=== PATIENT | male | born 1965 | race Caucasian/White ===

== ENCOUNTER → 2017-11-01 | Outpatient (CLI) | payer BC ==
--- NOTE | 2017-11-01 10:27 | Diagnostic Imaging Report ---
PROCEDURE: US abdomen complete. TECHNIQUE: Multiple real-time grayscale images were obtained over the abdomen in various projections. INDICATION: Epigastric pain. FINDINGS: The liver is normal in size at 15.6 cm. No discrete liver mass is identified. The portal vein is patent and demonstrates normal direction of flow. Gallbladder contains small polyps. No stones or sludge are identified. There is no wall thickening or biliary ductal dilatation. Pancreas is poorly visualized due to bowel gas. Spleen is normal in size. Aorta and IVC are unremarkable. The right and left kidneys are unremarkable. There is no ascites. IMPRESSION: Essentially unremarkable abdominal ultrasound. No acute feature is detected. Dictated by: Dictated on workstation # [id number]
== END ==
LOC: RAD 09:23
PROVIDERS: ATTEND Internal Medicine
DX: R10.13 Epigastric pain (principal)
CPT/HCPCS: 76700

== ENCOUNTER 2020-10-04 19:10 | Inpatient (IN) | payer BC ==
[~2020-10-04] VITALS: Ht 175 cm; Wt 95.2 kg
[2020-10-04 19:30] LABS: BASOPHILS % (AUTO) 0 % (0-10); EOSINOPHILS # (AUTO) 0.1 10^3/uL (0.0-0.3); EOSINOPHILS % (AUTO) 2 % (0-10); HEMATOCRIT 43 % (40-54); HEMOGLOBIN 14.4 g/dL (13.3-17.7); LYMPHOCYTES # (AUTO) 2.8 10^3/uL (1.0-4.0); LYMPHOCYTES % (AUTO) 49 % (12-44); MEAN CORPUSCULAR HEMOGLOBIN 29 pg (25-34); MEAN CORPUSCULAR HGB CONC 34 g/dL (32-36); MEAN CORPUSCULAR VOLUME 87 fL (80-99); MEAN PLATELET VOLUME 10.2 fL (9.0-12.2); MONOCYTES # (AUTO) 0.7 10^3/uL (0.0-1.0); MONOCYTES % (AUTO) 12 % (0-12); NEUTROPHILS # (AUTO) 2.1 10^3/uL (1.8-7.8); NEUTROPHILS % (AUTO) 37 % (42-75); PLATELET COUNT 225 10^3/uL (130-400); WHITE BLOOD COUNT 5.6 10^3/uL (4.3-11.0)
[2020-10-04] MEDS ORDERED: dilTIAZem DRIP PRE-MIX 125 ML IV SCH ×2 (19:30→22:00)
[2020-10-04] MEDS ORDERED: ASPIRIN 81 MG CHEW (CHILDREN'S ASA) PO ONE (19:30)
[2020-10-04] MEDS ORDERED: NS IV 1000 ML 1,000 ML IV SCH (19:30)
--- NOTE | 2020-10-04 19:32 | ED Cardiac General ---
History of Present Illness General Chief Complaint: Cardiac/General Problems Stated Complaint: HIGH HEART RATE Source: patient Exam Limitations: no limitations History of Present Illness Date Seen by Provider: Oct 04, 2020 Time Seen by Provider: 19:26 Initial Comments To ER by private vehicle with reports of high heart rate and palpitations since noon today. He had some chest pain at the onset of this in the upper chest that radiated into his neck. He denies shortness of breath. He does have a sensation of lightheadedness. Has a history of these palpitations intermittent ly but states that they normally go away on their own. He does not have any personal history of arrhythmia or coronary disease. He bicycles 10 to 20 miles a day and considers himself pretty healthy. Alcohol use is only occasional and none today. This episode of palpitations and tachycardia began today while he was at a golf tournament. Timing/Duration: changing over time Severity: moderate Activities at Onset: none Prior CP/Workup: no prior chest pain NTG SL ELECTRICIAN MACHINE SHOP: No ASA po ELECTRICIAN MACHINE SHOP: No Allergies and Home Medications Allergies Coded Allergies: No Known Drug Allergies (Unverified , 10/04/20) Patient Home Medication List Home Medication List Reviewed: Yes Review of Systems Review of Systems Constitutional: see HPI EENTM: No Symptoms Reported Respiratory: No Symptoms Reported Cardiovascular: See HPI, Chest Pain, Irregular Heart Rate, Palpitations Gastrointestinal: See HPI, Abdominal Pain Genitourinary: No Symptoms Reported Musculoskeletal: no symptoms reported Skin: no symptoms reported Psychiatric/Neurological: No Symptoms Reported Endocrine: No Symptoms Reported Hematologic/Lymphatic: No Symptoms Reported Physical Exam Vital Signs Vital Signs - First Documented 10/04/20 19:26 Temp 36.6 Pulse 116 Resp 18 B/P (MAP) 132/112 (119) Capillary Refill : Height, Weight, BMI Height: '" Weight: lbs. oz. kg; BMI Method: General Appearance: No Apparent Distress, WD/WN Neck: Full Range of Motion, Normal Inspection Respiratory: No Accessory Muscle Use, No Respiratory Distress Cardiovascular: Normal Peripheral Pulses, Irregularly Irregular, Tachycardia Gastrointestinal: Normal Bowel Sounds, Non Tender, Soft Extremity: Normal Capillary Refill, Normal Inspection Neurologic/Psychiatric: Alert, Oriented x3 Skin: Normal Color, Warm/Dry Progress/Results/Core Measures Results/Orders Lab Results Laboratory Tests Test 10/04/20 19:21 Range/Units White Blood Count 5.6 4.3-11.0 10^3/uL Red Blood Count 4.93 4.30-5.52 10^6/uL Hemoglobin 14.4 13.3-17.7 g/dL Hematocrit 43 40-54 % Mean Corpuscular Volume 87 80-99 fL Mean Corpuscular Hemoglobin 29 25-34 pg Mean Corpuscular Hemoglobin Concent 34 32-36 g/dL Red Cell Distribution Width 12.7 10.0-14.5 % Platelet Count 225 130-400 10^3/uL Mean Platelet Volume 10.2 9.0-12.2 fL Immature Granulocyte % (Auto) 0 % Neutrophils (%) (Auto) 37 L 42-75 % Lymphocytes (%) (Auto) 49 H 12-44 % Monocytes (%) (Auto) 12 0-12 % Eosinophils (%) (Auto) 2 0-10 % Basophils (%) (Auto) 0 0-10 % Neutrophils # (Auto) 2.1 1.8-7.8 10^3/uL Lymphocytes # (Auto) 2.8 1.0-4.0 10^3/uL Monocytes # (Auto) 0.7 0.0-1.0 10^3/uL Eosinophils # (Auto) 0.1 0.0-0.3 10^3/uL Basophils # (Auto) 0.0 0.0-0.1 10^3/uL Immature Granulocyte # (Auto) 0.0 0.0-0.1 10^3/uL Neutrophils % (Manual) 31 % Lymphocytes % (Manual) 49 % Monocytes % (Manual) 10 % Eosinophils % (Manual) 7 % Band Neutrophils 1 % Atypical Lymphocytes 2 % Smudge Cells SLIGHT Poikilocytosis SLIGHT Anisocytosis SLIGHT Microcytosis SLIGHT Tear Drop Cells SLIGHT [place] Cells SLIGHT Prothrombin Time 13.2 12.2-14.7 SEC INR Comment 1.0 0.8-1.4 Activated Partial Thromboplast Time 29 24-35 SEC D-Dimer 0.06 0.00-0.49 UG/ML Sodium Level 143 135-145 MMOL/L Potassium Level 4.2 3.6-5.0 MMOL/L Chloride Level 108 H 98-107 MMOL/L Carbon Dioxide Level 24 21-32 MMOL/L Anion Gap 11 5-14 MMOL/L Blood Urea Nitrogen 15 7-18 MG/DL Creatinine 1.02 0.60-1.30 MG/DL Estimat Glomerular Filtration Rate > 60 BUN/Creatinine Ratio 15 Glucose Level 88 70-105 MG/DL Calcium Level 9.2 8.5-10.1 MG/DL Corrected Calcium 8.9 8.5-10.1 MG/DL Magnesium Level 2.0 1.6-2.4 MG/DL Total Bilirubin 0.5 0.1-1.0 MG/DL Aspartate Amino Transf (AST/SGOT) 29 5-34 U/L Alanine Aminotransferase (ALT/SGPT) 30 0-55 U/L Alkaline Phosphatase 76 40-136 U/L Myoglobin 75.5 10.0-92.0 NG/ML Troponin I < 0.028 <0.028 NG/ML B-Type Natriuretic Peptide 51.7 <100.0 PG/ML Total Protein 7.6 6.4-8.2 GM/DL Albumin 4.4 3.2-4.5 GM/DL My Orders Orders - FLOR CELESTIN HANDBAG FRAMES INSPECTOR Cbc With Automated Diff (10/04/20 19:24) Magnesium (10/04/20 19:24) Chest 1 View, Ap/Pa Only (10/04/20 19:24) Ekg Tracing (10/04/20 19:24) Comprehensive Metabolic Panel (10/04/20 19:24) Myoglobin Serum (10/04/20 19:24) Protime With Inr (10/04/20 19:24) Partial Thromboplastin Time (10/04/20 19:24) O2 (10/04/20 19:24) Monitor-Rhythm Ecg Trace Only (10/04/20 19:24) Lipid Panel (10/05/20 06:00) Ed Iv/Invasive Line Start (10/04/20 19:24) BNP (10/04/20 19:24) Troponin I (10/04/20 19:24) Aspirin Chewable Tablet (Baby Aspirin Ch (10/04/20 19:30) Ns Iv 1000 Ml (Sodium Chloride 0.9%) (10/04/20 19:30) Diltiazem Injection (Cardizem Injection) (10/04/20 19:30) Diltiazem Drip Pre-Mix (Cardizem Drip Pr (10/04/20 19:30) Manual Differential (6/5/21 19:21) Fibrin Degradation Products (10/04/20 19:21) Apixaban Tablet (Eliquis Tablet) (10/04/20 20:30) Medications Given in ED Current Medications Medications Dose Ordered Sig/Hardeep Route Start Time Stop Time Status Last Admin Dose Admin Aspirin 324 mg ONCE ONCE PO 10/04/20 19:30 10/04/20 19:31 DC 10/04/20 19:33 324 MG Diltiazem HCl 10 mg ONCE ONCE IVP 10/04/20 19:30 10/04/20 19:31 DC 10/04/20 19:33 10 MG Vital Signs/I&O 10/04/20 19:26 Temp 36.6 Pulse 116 Resp 18 B/P (MAP) 132/112 (119) Diagnostic Imaging Diagonstic Imaging: Xray Comments NAME: LISA ROBLEDO MED REC#: [id number] PT STATUS: REG ER : 1965 PHYSICIAN: FLOR CELESTIN HANDBAG FRAMES INSPECTOR ADMIT DATE: 10/04/20/ER Draft Date of Exam:10/04/20 CHEST 1 VIEW, AP/PA ONLY EXAMINATION: Chest 1 view. HISTORY: Chest pain. COMPARISON: None available. FINDINGS: The lungs are clear without edema or pneumonia. No pleural effusion or pneumothorax. Heart size is normal. IMPRESSION: Clear lungs. Dictated on workstation # [id number] Dict: 10/04/201955 Trans: 10/04/201958 [id number] Interpreted by: ANNABELLE PERSAUD MD Electronically signed by: Departure Communication (Admissions) [id number] rate of 125 borderline prolonged QT interval of 485ms. 2027-the Cardizem drip is at 10 mg an hour his heart rate is in the 70s still atrial flutter blood pressure 130/100. Eliquis 5 mg orally ordered. Spoke with Dr. Smalls will continue this regimen in the ICU, spoke with Dr. Santana she agrees to admit. Impression Primary Impression: New onset a-fib Disposition: ADMITTED INPATIENT Condition: Stable Admissions Decision to Admit Reason: Admit from ER (General) Decision to Admit/Date: Oct 04, 2020 Time/Decision to Admit Time: 19:30 Departure-Patient Inst. Referrals: CARLY SIERRA DO (PCP/Family) Primary Care Physician FLOR CELESTIN APRN Oct 04, 2020 19:32
[2020-10-04 19:40] LABS: ALBUMIN 4.4 GM/DL (3.2-4.5)
[2020-10-04 19:42] LABS: CALCIUM 9.2 MG/DL (8.5-10.1)
[2020-10-04 19:43] LABS: GLUCOSE 88 MG/DL (70-105); TOTAL PROTEIN 7.6 GM/DL (6.4-8.2)
[2020-10-04 19:44] LABS: CARBON DIOXIDE 24 MMOL/L (21-32)
[2020-10-04 19:45] LABS: BILIRUBIN,TOTAL 0.5 MG/DL (0.1-1.0)
[2020-10-04 19:46] LABS: ALKALINE PHOSPHATASE 76 U/L (40-136)
[2020-10-04 19:49] LABS: ALANINE AMINOTRANSFERASE 30 U/L (0-55)
[2020-10-04 19:55] LABS: FIBRIN DEGRADATION PRODUCTS 0.06 UG/ML (0.00-0.49); PROTHROMBIN TIME PATIENT 13.2 SEC (12.2-14.7)
--- NOTE | 2020-10-04 19:59 | Diagnostic Imaging Report ---
EXAMINATION: Chest 1 view. HISTORY: Chest pain. COMPARISON: None available. FINDINGS: The lungs are clear without edema or pneumonia. No pleural effusion or pneumothorax. Heart size is normal. IMPRESSION: Clear lungs. Dictated by: Dictated on workstation # [id number]
[2020-10-04 20:13] LABS: BUN/CREATININE RATIO 15; CHLORIDE 108 MMOL/L (98-107); CREATININE SERUM 1.02 MG/DL (0.60-1.30); GFR ESTIMATED > 60; POTASSIUM 4.2 MMOL/L (3.6-5.0); SODIUM 143 MMOL/L (135-145)
[2020-10-04 20:22] LABS: BAND NEUTROPHILS 1 %; EOSINOPHILS % (MANUAL) 7 %; LYMPHOCYTES % (MANUAL) 49 %; MONOCYTES % (MANUAL) 10 %; NEUTROPHILS % (MANUAL) 31 %
[2020-10-04 20:23] LABS: ANISOCYTOSIS SLIGHT; ATYPICAL LYMPHOCYTES 2 %; BURR CELLS SLIGHT; MICROCYTOSIS SLIGHT; POIKILOCYTOSIS SLIGHT; SMUDGE CELLS SLIGHT; TEAR DROP CELLS SLIGHT
[2020-10-04] MEDS ORDERED: APIXABAN 5 MG (ELIQUIS) TABLET PO ONE (20:30)
[2020-10-04 20:45] VITALS: BP 126/92
[2020-10-04] MEDS: LACTATED RINGERS 1,000 ML IV SCH (21:08)
[2020-10-04] MEDS ORDERED: LACTATED RINGERS 1,000 ML IV ONE (21:08)
[2020-10-05 03:14] LABS: BASOPHILS % (AUTO) 0 % (0-10); EOSINOPHILS # (AUTO) 0.1 10^3/uL (0.0-0.3); EOSINOPHILS % (AUTO) 2 % (0-10); HEMATOCRIT 42 % (40-54); HEMOGLOBIN 14.5 g/dL (13.3-17.7); LYMPHOCYTES % (AUTO) 57 % (12-44); MEAN CORPUSCULAR HEMOGLOBIN 30 pg (25-34); MEAN CORPUSCULAR HGB CONC 35 g/dL (32-36); MEAN CORPUSCULAR VOLUME 86 fL (80-99); MEAN PLATELET VOLUME 10.6 fL (9.0-12.2); MONOCYTES # (AUTO) 0.5 10^3/uL (0.0-1.0); MONOCYTES % (AUTO) 9 % (0-12); NEUTROPHILS # (AUTO) 1.6 10^3/uL (1.8-7.8); NEUTROPHILS % (AUTO) 31 % (42-75); PLATELET COUNT 226 10^3/uL (130-400); WHITE BLOOD COUNT 5.3 10^3/uL (4.3-11.0)
[2020-10-05 03:25] LABS: CHLORIDE 108 MMOL/L (98-107); SODIUM 143 MMOL/L (135-145)
[2020-10-05 03:27] LABS: CALCIUM 8.9 MG/DL (8.5-10.1); TRIGLYCERIDES 57 MG/DL (<150); VLDL CHOLESTEROL 11 MG/DL (5-40)
[2020-10-05 03:28] LABS: GLUCOSE 108 MG/DL (70-105)
[2020-10-05 03:29] LABS: CARBON DIOXIDE 21 MMOL/L (21-32)
[2020-10-05 03:31] LABS: CREATININE SERUM 0.82 MG/DL (0.60-1.30); GFR ESTIMATED > 60; PHOSPHORUS 2.6 MG/DL (2.3-4.7)
[2020-10-05 03:32] LABS: BUN/CREATININE RATIO 16; CHOLESTEROL 207 MG/DL (< 200)
[2020-10-05 03:33] LABS: HDL CHOLESTEROL 53 MG/DL (40-60)
[2020-10-05] MEDS: LACTATED RINGERS 1,000 ML IV SCH (07:08)
[2020-10-05] MEDS ORDERED: ASPIRIN E.C. 81 MG (ECOTRIN) TAB PO SCH (09:00)
[2020-10-05] MEDS ORDERED: APIXABAN 5 MG (ELIQUIS) TABLET PO SCH (09:00)
--- NOTE | 2020-10-05 09:47 | History & Physical-Hospitalist ---
History of Present Illness HPI/Chief Complaint Pt is a 53yoCM with no known medical problems who presented to the ER due to heart palpitations. He was out playing golf yesterday and started to feel his heart racing. He became someone faint and decided to go home and rest and rehydrate. He thought his symptoms were just due to dehydration from the heat. After resting and drinking water his heart rate remained in the 130-135 range when he normally runs around 50 as he is an active bicyclist. He decided to seek evaluation in the ER where he was found to be in atrial flutter. He reports that he has never been diagnosed with this but has had similar symptoms for years that had resolved on their own. He converted to sinus overnight and now feels well. Source: patient Date Seen 10/05/20 Time Seen by a Provider: 09:42 Attending Physician Enriqueta Santana MD PCP Yon Ryan DO Referring Physician Date of Admission Oct 04, 2020 at 19:33 Home Medications & Allergies Home Medications Reviewed patient Home Medication Reconciliation performed by pharmacy medication reconciliations pipe organ technician and/or nursing. Patients Allergies have been reviewed. Allergies Allergies Coded Allergies No Known Drug Allergies (Unverified10/04/20) Past [id number]-[id number]-[id number] Hx Patient Social History Marrital Status: Employed/Student: employed Tobacco Use?: Yes Smoking Status: Never a Smoker Smokeless type used: Chew, Pouch Smokeless Tobacco Frequency: Current Everyday User Use of E-Cig and/or Vaping dev: No Substance use?: No Substance frequency: Rarely Alcohol Use?: Yes Alcohol Frequency: Rarely Pt feels they are or have been: No Immunizations Up To Date First/Initial COVID19 Vaccinat: 06/2020 Second COVID19 Vaccination Stoney: 07/2020 PED Vaccines UTD: Yes Seasonal Allergies Seasonal Allergies: No Current Status Advance Directives: No Communicates: Verbally Primary Language: Martiniquais Preferred Spoken Language: Martiniquais Is interpretation needed?: No Implanted or Applied Medical D: None Past Medical History Headaches /Migraines Blood Disorders: No Family Medical History Reviewed Nursing Family Hx No Pertinent Family Hx Review of Systems Constitutional: No chills, No fever EENTM: no symptoms reported Respiratory: No cough, No dyspnea on exertion, No short of breath Cardiovascular: No chest pain, No edema, No Hx of Intervention; palpitations; No syncope Gastrointestinal: No abdominal pain, No constipation, No diarrhea, No nausea, No vomiting Genitourinary: No dysuria, No frequency Musculoskeletal: no symptoms reported Skin: no symptoms reported Psychiatric/Neurological: No Symptoms Reported Physical Exam Physical Exam Vital Signs Vital Signs - First Documented 10/04/20 10/04/20 19:26 20:45 Temp 36.6 Pulse 116 Resp 18 B/P (MAP) 132/112 (119) Pulse Ox 98 O2 Delivery Room Air Capillary Refill : Less Than 3 Seconds Height, Weight, BMI Height: '" Weight: lbs. oz. kg; 31.08 BMI Method: General Appearance: No Apparent Distress, WD/WN HEENT: PERRL/EOMI, Moist Mucous Membranes; No Scleral Icterus (L), No Scleral Icterus (R) Neck: Normal Inspection, Supple Respiratory: Lungs Clear, No Accessory Muscle Use, No Respiratory Distress Cardiovascular: Regular Rate, Rhythm, No JVD, No Murmur Gastrointestinal: Normal Bowel Sounds, Soft Extremity: Normal Capillary Refill, No Calf Tenderness, No Pedal Edema Neurologic/Psychiatric: Alert, Oriented x3, Normal Mood/Affect Skin: Normal Color, Warm/Dry Results Results/Procedures Labs Laboratory Tests 10/04/20 19:21 10/05/20 03:04 Patient resulted labs reviewed. Imaging: Reviewed Imaging Report Imaging [facility] [place] NAME: VENKATLISA Clarke [facility] REC#: [id number] PT STATUS: ADM IN : 1965 PHYSICIAN: FLOR CELESTIN APRN ADMIT DATE: 10/04/20/ICU Signed Date of Exam:10/04/20 CHEST 1 VIEW, AP/PA ONLY EXAMINATION: Chest 1 view. HISTORY: Chest pain. COMPARISON: None available. FINDINGS: The lungs are clear without edema or pneumonia. No pleural effusion or pneumothorax. Heart size is normal. IMPRESSION: Clear lungs. Dictated by: Dictated on workstation # [id number] Dict: 10/04/201955 Trans: 10/04/202125 [facility] [id number] Interpreted by: ANNABELLE PERSAUD MD Electronically signed by: ANNABELLE PERSAUD MD 10/04/202125 Assessment/Plan Admission Diagnosis New onset atrial flutter Admission Status: Observation Assessment and Plan New onset atrial flutter Converted to sinus overnight Echo ordered Continue Eliquis for now but CHADSVASC score of 0 so may only need aspirin, will defer to cardiology Cardiology consulted, appreciate recs Telemetry Chew tobacco use Encourage cessation DVT ppx: On eliquis Diagnosis/Problems Diagnosis/Problems (1) New onset a-fib Status: Acute Clinical Quality Measures AMI/AHF: ASA po Prior to arrival: No Copy Copies To 1: YON RYAN KATELYN M MD Oct 05, 2020 09:47
[2020-10-05] MEDS ORDERED: APIX5TAB PO (14:54)
[2020-10-05] MEDS ORDERED: DILT120C82 PO (14:54)
--- NOTE | 2020-10-05 15:01 | Consultation-Cardiology ---
HPI-Cardiology Cardiology Consultation: Date of Consultation 10/05/20 Time Seen by a Provider: 13:50 Date of Admission 10/04/20 Attending Physician Enriqueta Santana MD Admitting Physician Yon Ryan DO Consulting Physician ISABEL ESCOBAR MD, MA, FACP, FACC, FSCAI, CCDS HPI: Chief Complaint: CC: Palpitations HPI 54 yo man who developed palpitations while playing golf yesterday, came to ER, found to be in A Fl with RVR, treated with iv Cardizem, converted overnight to sinus. Feels well now. Notes presence of similar palpitations for several years, generally lasting only a few min, persistent yesterday. No cp or syncope. No shortness of breath or swelling. Physically active Review of Systems-Cardiology Review of Systems Constitutional: No malaise, No tiredness, No weight loss, No weight gain Eyes: No vision change Ears/Nose/Throat: No ear discharge, No nasal drainage, No recent hearing loss Respiratory: As described under HPI Cardiovascular: As described under HPI Gastrointestinal: No constipation, No diarrhea, No nausea, No other Genitourinary: No dysuria, No hematuria, No urine frequency changes Musculoskeletal: No back pain, No joint pain Skin: No rash, No ulcerations Psychiatric/Neurological: No seizure, No focal weakness, No syncope Hematologic: No bleeding abnormalities DDH-Zlgeoy-Jtcwse Hx Patient Social History Marrital Status: Employed/Student: employed Smoking Status: Never a Smoker 2nd Hand Smoke Exposure: No Have you traveled recently?: No Alcohol Use?: Yes Pt feels they are or have been: No Immunizations Up To Date Tetanus Booster (TDap): More than 5yrs Past Medical History PMH As described under Assessment. Family Medical History Family Medical History: Father had WA at age ^* Allergies and Home Medications Allergies Coded Allergies: No Known Drug Allergies (Unverified , 10/04/20) Patient Home Medication List Home Medication List Reviewed: Yes Physical Exam-Cardiology Physical Exam Vital Signs/I&O 10/05/20 10/05/20 10/05/20 10/05/20 03:00 03:26 03:52 04:00 Temp 37.0 Pulse 45 46 Resp 15 23 B/P (MAP) 108/79 (89) 103/73 (83) Pulse Ox 99 97 O2 Delivery Room Air Room Air Room Air 10/05/20 10/05/20 10/05/20 10/05/20 05:00 06:00 07:00 07:00 Pulse 47 47 56 54 Resp 16 16 14 B/P (MAP) 100/64 (76) 95/64 (74) 106/74 (85) Pulse Ox 98 99 98 O2 Delivery Room Air Room Air Room Air 10/05/20 10/05/20 10/05/20 10/05/20 08:00 08:00 08:30 09:00 Temp 36.6 Pulse 49 54 Resp 13 12 B/P (MAP) 113/78 (90) 109/79 (89) Pulse Ox 98 98 99 O2 Delivery Room Air Room Air Room Air 10/05/20 10/05/20 10/05/20 10/05/20 10:00 11:00 11:11 11:52 Temp 36.8 Pulse 53 57 Resp 13 19 B/P (MAP) 118/76 (90) 119/82 (94) Pulse Ox 98 98 99 O2 Delivery Room Air Room Air Room Air 10/05/20 10/05/20 10/05/20 12:00 12:39 13:00 Pulse 54 53 58 Resp 14 22 B/P (MAP) 109/67 (81) 103/74 (84) Pulse Ox 97 97 O2 Delivery Room Air Room Air 10/05/20 00:00 Intake Total 1000 ml Output Total 200 ml Balance 800 ml Capillary Refill : Less Than 3 Seconds Constitutional: AAO x 3, well-developed, well-nourished HEENT: EOMI, hearing is well preserved; No xanthelasmas are seen Neck: carotid pulses are 2 + bilaterally, with good upstrokes Respiratory: No accessory muscle use; other (good, bilateral air entry) Cardiovascular: regular rate-rhythm, S1 and S2 Gastrointestinal: No tender; soft; No guarding, No rebound; audible bowel sounds Extremities: No clubbing, No cyanosis, No significant edema Neurologic/Psychiatric: oriented x 3, other (moves all limbs equally) Skin: No rash on exposed areas, No ulcerations on exposed areas Data Review Labs Laboratory Tests 10/04/20 19:21: White Blood Count 5.6, Red Blood Count 4.93, Hemoglobin 14.4, Hematocrit 43, Mean Corpuscular Volume 87, Mean Corpuscular Hemoglobin 29, Mean Corpuscular Hemoglobin Concent 34, Red Cell Distribution Width 12.7, Platelet Count 225, Mean Platelet Volume 10.2, Immature Granulocyte % (Auto) 0, Neutrophils (%) (Auto) 37L, Lymphocytes (%) (Auto) 49H, Monocytes (%) (Auto) 12, Eosinophils (%) (Auto) 2, Basophils (%) (Auto) 0, Neutrophils # (Auto) 2.1, Lymphocytes # (Auto) 2.8, Monocytes # (Auto) 0.7, Eosinophils # (Auto) 0.1, Basophils # (Auto) 0.0, Immature Granulocyte # (Auto) 0.0, Neutrophils % (Manual) 31, Lymphocytes % (Manual) 49, Monocytes % (Manual) 10, Eosinophils % (Manual) 7, Band Neutrophils 1, Atypical Lymphocytes 2, Smudge Cells SLIGHT, Poikilocytosis SLIGHT, Anisocytosis SLIGHT, Microcytosis SLIGHT, Tear Drop Cells SLIGHT, [place] Cells SLIGHT, Prothrombin Time 13.2, INR Comment 1.0, Activated Partial Thromboplast Time 29, D-Dimer 0.06, Sodium Level 143, Potassium Level 4.2, Chloride Level 108H, Carbon Dioxide Level 24, Anion Gap 11, Blood Urea Nitrogen 15, Creatinine 1.02, Estimat Glomerular Filtration Rate > 60, BUN/Creatinine Ratio 15, Glucose Level 88, Calcium Level 9.2, Corrected Calcium 8.9, Magnesium Level 2.0, Total Bilirubin 0.5, Aspartate Amino Transf (AST/SGOT) 29, Alanine Aminotransferase (ALT/SGPT) 30, Alkaline Phosphatase 76, Myoglobin 75.5, Troponin I < 0.028, B- Type Natriuretic Peptide 51.7, Total Protein 7.6, Albumin 4.4 10/05/20 00:30: Troponin I < 0.028 10/05/20 03:04: White Blood Count 5.3, Red Blood Count 4.85, Hemoglobin 14.5, Hematocrit 42, Mean Corpuscular Volume 86, Mean Corpuscular Hemoglobin 30, Mean Corpuscular Hemoglobin Concent 35, Red Cell Distribution Width 12.7, Platelet Count 226, Mean Platelet Volume 10.6, Immature Granulocyte % (Auto) 0, Neutrophils (%) (Auto) 31L, Lymphocytes (%) (Auto) 57H, Monocytes (%) (Auto) 9, Eosinophils (%) (Auto) 2, Basophils (%) (Auto) 0, Neutrophils # (Auto) 1.6L, Lymphocytes # (Auto) 3.0, Monocytes # (Auto) 0.5, Eosinophils # (Auto) 0.1, Basophils # (Auto) 0.0, Immature Granulocyte # (Auto) 0.0, Sodium Level 143, Potassium Level 4.0, Chloride Level 108H, Carbon Dioxide Level 21, Anion Gap 14, Blood Urea Nitrogen 13, Creatinine 0.82, Estimat Glomerular Filtration Rate > 60, BUN/Creatinine Ratio 16, Glucose Level 108H, Calcium Level 8.9, Magnesium Level 2.0, Phosphorus Level 2.6, Triglycerides Level 57, Cholesterol Level 207H, LDL Cholesterol Direct 158H, VLDL Cholesterol 11, HDL Cholesterol 53 Laboratory Tests 10/04/20 19:21 10/05/20 03:04 A/P-Cardiology Assessment/Admission Diagnosis Typical atrial flutter with RVR, currently NSR Discussion and Recomendations * We had a long and detailed discussion * Treatment options reviewed. He desires conservative therapy * Low-dose, long-acting dilt for rate control * Apixaban for stroke prophylaxis * Potential side effects of meds discussed * Outpt f/u recommended Clinical Quality Measures AMI/AHF: ASA po Prior to arrival: ISABEL Ho MD [facility] Oct 05, 2020 15:01
[2020-10-05] MEDS ORDERED: dilTIAZem120 MG (CARDIZEM CD) CAP PO SCH (16:15)
[2020-10-06] MEDS ORDERED: dilTIAZem120 MG (CARDIZEM CD) CAP PO SCH (09:00)
== END 2020-10-05 16:25 | disposition home or self-care (01) | DRG 310 ==
LOC: EDUNIT# 19:10 → ER 19:12 → ICU 19:33
PROVIDERS: ADMIT Family Medicine; ATTEND Family Medicine
DX: I48.91 Unspecified atrial fibrillation (principal); I48.92 Unspecified atrial flutter; F17.220 Nicotine dependence, chewing tobacco, uncomplicated
CPT/HCPCS: 36415; 71045; 80048; 80053; 80061; 83735; 83874; 83880; 84100; 84484; 85007; 85025; 85027; 85379; 85610; 85730; 87081; 93005; 93041; 93306